=== PATIENT | male | born 1955 | race Caucasian/White ===

== ENCOUNTER 2016-06-25 23:04 | Emergency (ER) | payer OTHER, BC ==
[2016-06-25 23:31] VITALS: TEMP 98.2
[2016-06-25] MEDS ORDERED: SODIUM CHLORIDE 0.9% 1,000 ML IV STA (23:33)
[2016-06-25] MEDS ORDERED: KETOROLAC 30 MG/ML 1 ML VIAL IVP STA (23:33)
--- NOTE | 2016-06-26 00:10 | ED ---
Abdominal Pain HPI - General Chief Complaint: Abdominal Pain Stated Complaint: back pain/poss kidney stones Time Seen by Provider: 06/25/16 23:32 Source: patient, RN notes reviewed Mode of arrival: ambulatory Limitations: no limitations - History of Present Illness Initial Comments: 61-year-old male presents emergency Department chief complaint left flank pain. Patient states this started today. Patient states pain is consistent with his previous kidney stones. Patient had some nausea no vomiting or diarrhea constipation. Patient took some pain medicine left over from his prior stones and states to help for a short period time. Patient states that he has no dysuria and did not notice any hematuria. Patient had no prior abdominal surgeries. Patient offers no other complaints. No fevers no chills. - Related Data Previous Rx's Medication Instructions Recorded Hydrocodone/Acetaminophen [[place] 1 tab PO Q6HR PRN #20 tab 06/26/16 5-325] Ondansetron Odt [Zofran Odt] 4 mg PO Q8HR PRN #10 tab 06/26/16 Tamsulosin [Flomax] 0.4 mg PO DAILY #7 cap 06/26/16 Allergies Allergy/AdvReac Type Severity Reaction Status Date / Time No Known Allergies Allergy Verified 06/25/16 23:40 Review of Systems ROS Statement: Those systems with pertinent positive or pertinent negative responses have been documented in the HPI. ROS Other: All systems not noted in ROS Statement are negative. Past Medical History Additional Past Medical History / Comment(s): Kidney stones History of Any Multi-Drug Resistant Organisms: None Reported Past Surgical History: No Surgical Hx Reported Past Psychological History: No Psychological Hx Reported Smoking Status: Never smoker Past Alcohol Use History: Rare Past Drug Use History: None Reported General Exam Limitations: no limitations General appearance: alert, in no apparent distress Respiratory exam: Present: normal lung sounds bilaterally. Absent: respiratory distress, wheezes, rales, rhonchi, stridor Cardiovascular Exam: Present: regular rate, normal rhythm, normal heart sounds. Absent: systolic murmur, diastolic murmur, rubs, gallop, clicks GI/Abdominal exam: Present: soft, normal bowel sounds. Absent: distended, tenderness, guarding, rebound, rigid Back exam: Present: CVA tenderness (L) (Minimal). Absent: CVA tenderness (R) Neurological exam: Present: alert, oriented X3, CN II-XII intact Course Vital Signs 06/25/16 06/26/16 23:27 01:38 Temperature 98.2 F Pulse Rate 68 66 Respiratory 18 16 Rate Blood Pressure 136/71 128/73 O2 Sat by Pulse 98 97 Oximetry Medical Decision Making - Medical Decision Making 61-year-old male presented for left flank pain. Patient has hematuria noted. Patient has a history kidney stones and pain consistent with kidney stones. Patient be discharged with pain medication, Flomax. Patient be follow-up with primary care physician and urologist as needed. Return parameters were discussed. - Lab Data Result diagrams: 06/26/16 00:10 06/26/16 00:10 Lab Results 06/26/16 06/26/16 06/26/16 Range/Units 00:01 00:10 00:10 WBC 10.8 H (3.8-10.6) k/uL RBC 5.01 (4.30-5.90) m/uL Hgb 14.2 (13.0-17.5) gm/dL Hct 43.7 (39.0-53.0) % MCV 87.3 (80.0-100.0) fL MCH 28.4 (25.0-35.0) pg MCHC 32.5 (31.0-37.0) g/dL RDW 13.7 (11.5-15.5) % Plt Count 268 (150-450) k/uL Neutrophils % 74 % Lymphocytes % 15 % Monocytes % 6 % Eosinophils % 2 % Basophils % 1 % Neutrophils # 8.0 H (1.3-7.7) k/uL Lymphocytes # 1.6 (1.0-4.8) k/uL Monocytes # 0.7 (0-1.0) k/uL Eosinophils # 0.3 (0-0.7) k/uL Basophils # 0.1 (0-0.2) k/uL Sodium 139 (137-145) mmol/L Potassium 4.5 (3.5-5.1) mmol/L Chloride 106 (98-107) mmol/L Carbon Dioxide 26 (22-30) mmol/L Anion Gap 7 mmol/L BUN 22 H (9-20) mg/dL Creatinine 1.20 (0.66-1.25) mg/dL Est GFR (MDRD) Af Amer >60 (>60 ml/min/1.73 sqM) Est GFR (MDRD) Non-Af >60 (>60 ml/min/1.73 sqM) Glucose 118 H (74-99) mg/dL Calcium 9.1 (8.4-10.2) mg/dL Total Bilirubin 0.5 (0.2-1.3) mg/dL AST 22 (17-59) U/L ALT 40 (21-72) U/L Alkaline Phosphatase 54 (38-126) U/L Total Protein 6.9 (6.3-8.2) g/dL Albumin 3.8 (3.5-5.0) g/dL Amylase 66 (30-110) U/L Lipase 97 (23-300) U/L Urine Color Yellow Urine Appearance Clear (Clear) Urine pH 6.0 (5.0-8.0) Ur Specific [place] 1.022 (1.001-1.035) Urine Protein Trace H (Negative) Urine Glucose (UA) Negative (Negative) Urine Ketones Negative (Negative) Urine Blood Moderate H (Negative) Urine Nitrite Negative (Negative) Urine Bilirubin Negative (Negative) Urine Urobilinogen <2.0 (<2.0) mg/dL Ur Leukocyte Esterase Negative (Negative) Urine RBC 89 H (0-5) /hpf Urine WBC 1 (0-5) /hpf Ur Squamous Epith Cells 1 (0-4) /hpf Calcium Oxalate Crystal Occasional H (None) /hpf Urine Bacteria Rare H (None) /hpf Urine Mucus Rare H (None) /hpf Disposition Clinical Impression: Renal colic, Kidney stone, Hematuria Disposition: HOME SELF-CARE Condition: Stable Instructions: Kidney Stones (ED) Additional Instructions: Please return to the Emergency Department if symptoms worsen or any other concerns. Prescriptions: Hydrocodone/Acetaminophen [[place] 5-325] 1 tab PO Q6HR PRN #20 tab PRN Reason: Pain Ondansetron Odt [Zofran Odt] 4 mg PO Q8HR PRN #10 tab PRN Reason: Nausea Tamsulosin [Flomax] 0.4 mg PO DAILY #7 cap Referrals: Jamel Lozano DO [Primary Care Provider] - 1-2 days Time of Disposition: 02:09
[2016-06-26 00:22] LABS: Basophils # (A) 0.1 k/uL (0-0.2); Basophils % (A) 1 %; CH 28.8; CHCM 33.1; Eosinophils # (A) 0.3 k/uL (0-0.7); Eosinophils % (A) 2 %; HCT 43.7 % (39.0-53.0); HGB 14.2 gm/dL (13.0-17.5); Luc # (Auto) 0.19; Luc % (Auto) 2; Lymphocytes # (A) 1.6 k/uL (1.0-4.8); Lymphocytes % (A) 15 %; MCH 28.4 pg (25.0-35.0); MCHC 32.5 g/dL (31.0-37.0); MCV 87.3 fL (80.0-100.0); Mean Platelet Volume 8.2; Monocytes # (A) 0.7 k/uL (0-1.0); Monocytes % (A) 6 %; Neutrophils % (A) 74 %; RBC 5.01 m/uL (4.30-5.90); RDW 13.7 % (11.5-15.5); WBC 10.8 k/uL (3.8-10.6); WBC (Perox) 11.04
[2016-06-26 00:33] LABS: ALT 40 U/L (21-72); AST 22 U/L (17-59); Alkaline Phosphatase 54 U/L (38-126); Amylase 66 U/L (30-110); Anion Gap 7 mmol/L; Blood Urea Nitrogen 22 mg/dL (9-20); Calcium 9.1 mg/dL (8.4-10.2); Carbon Dioxide 26 mmol/L (22-30); Chloride 106 mmol/L (98-107); Glucose 118 mg/dL (74-99); Non-African American GFR(MDRD) >60 (>60 ml/min/1.73 sqM); Potassium 4.5 mmol/L (3.5-5.1); Sodium 139 mmol/L (137-145); Total Bilirubin 0.5 mg/dL (0.2-1.3); Total Protein 6.9 g/dL (6.3-8.2)
--- NOTE | 2016-06-26 00:34 | XR ---
Exam: FILM KUB 06/26/16 at 00 17 hours INDICATION: Abdominal pain COMPARISON: Abdominal radiograph exam 11/23/15 FINDINGS: 2 frontal views of the abdomen obtained. Bowel gas pattern non-obstructive. No free air under diaphragm. No radiopaque renal calculi identified. Mild dextroscoliosis lumbar spine again noted with degenerative changes. No acute osseous abnormality. Note is made of injection granulomas in the right gluteal region. IMPRESSION: Bowel gas pattern non-obstructive. No free air under the diaphragm. No radiopaque renal calculi identified.
[2016-06-26 01:40] VITALS: BP 128/73; PULSE 66; RESP 16
[2016-06-26 01:51] LABS: Appearance,Urine Clear (Clear); Bacteria,Urine Rare /hpf; Bilirubin,Urine Negative (Negative); Calcium Oxalate Crystals,Urine Occasional /hpf; Glucose,Urine (UA) Negative (Negative); Ketones,Urine Negative (Negative); Leukocyte Esterase,Urine Negative (Negative); Mucus,Urine Rare /hpf; Nitrite,Urine Negative (Negative); Particle Count 1831; Protein,Urine Trace (Negative); RBC,Urine 89 /hpf (0-5); Specific Gravity,Urine 1.022 (1.001-1.035); Squamous Epithelial Cell,Urine 1 /hpf (0-4); UA Billing (MACRO vs. MICRO) MICRO; Urobilinogen,Urine <2.0 mg/dL (<2.0); WBC,Urine 1 /hpf (0-5)
[2016-06-26] MEDS ORDERED: HYDROcodone/APAP 5-325MG 1 EACH TAB PO STA (02:08)
== END 2016-06-26 02:19 | disposition home or self-care (01) ==
LOC: EC 23:04
DX: N20.0 Calculus of kidney (principal); R10.9 Unspecified abdominal pain
CPT/HCPCS: 99284; 96374; 36415; 80053; 82150; 83690; 85025; 81001; 74000; J1885